=== PATIENT | female | born 1995 | race Hispanic/Latino ===

== ENCOUNTER 2019-10-22 08:40 | Day surgery (SDC) | payer OTHER ==
[2019-10-22] MEDS ORDERED: MIDAZOLAM HCL 2 MG/2 ML INJ ONE (09:00)
[2019-10-22] MEDS ORDERED: propofoL 200 MG/20 ML VIAL IV ONE (09:00)
[2019-10-22] MEDS ORDERED: Ringers Lactate 1,000 ML IV ONE ×2 (09:01→09:24)
[2019-10-22] MEDS ORDERED: CEFAZOLIN/SWI 1gm 0 GM/0 ML SYR ONE (09:01)
[2019-10-22] MEDS ORDERED: LIDOCAINE 2% MPF 5 ML VIAL ONE (09:01)
[2019-10-22] MEDS ORDERED: ROCURONIUM 50 MG/5 ML VIAL IV ONE ×2 (09:01→11:42)
[2019-10-22] MEDS ORDERED: SCOPOLAMINE HYDROBROMIDE PATCH TD ONE (09:01)
[2019-10-22] MEDS ORDERED: FENTANYL CITR 250 MCG/5 ML ONE ×2 (09:01→11:47)
[2019-10-22] MEDS ORDERED: dexAMETHasone 10 MG/ML VIAL ONE (09:01)
[2019-10-22] MEDS ORDERED: ONDANSETRON 4 MG/2 ML VIAL ONE ×2 (09:02→15:12)
[2019-10-22] MEDS ORDERED: CLINDAMYCIN 900MG/D5W 0 MG/0 ML IVPB IV ONE (09:14)
[2019-10-22] MEDS ORDERED: CLINDAMYCIN INJ 300 MG in NA CHLORIDE 0.9% 50 ML IV ONE (09:15)
[2019-10-22] MEDS ORDERED: NS 0.9% VIAL 50 ML ONE (09:23)
[2019-10-22] MEDS ORDERED: GENTAMICIN SULF 80 MG/2ML INJ ONE (09:23)
[2019-10-22] MEDS ORDERED: EPINEPHRINE/PF 1 MG/ML AMP ONE (09:23)
[2019-10-22] MEDS ORDERED: LIDOCAINE 1% W/EPI 1:100,000 MDV 20 ML VIAL ONE (09:23)
[2019-10-22] MEDS ORDERED: NA CHLORIDE 0.9% 2,000 ML ONE (09:24)
[2019-10-22] MEDS ORDERED: BACITRACIN 50000 UNIT VIAL ONE (09:24)
[2019-10-22] MEDS ORDERED: EPHEDRINE SULF 50 MG/ML VIAL ONE (10:14)
[2019-10-22] MEDS ORDERED: KETOROLAC 30 MG/ML INJ ONE (13:36)
[2019-10-22] MEDS ORDERED: Mastisol Adhesive Liq ONE (13:48)
[2019-10-22] MEDS: HYDROMORPHONE HCL 2 MG/ML inj ONE ×2 (14:25→14:37)
[2019-10-22 14:50] VITALS: O2SAT 100
[2019-10-22] MEDS ORDERED: CODEINE 30MG/APAP 300MG TAB ONE (16:06)
[2019-10-22 16:19] VITALS: TEMP 98.2
[2019-10-22 16:58] VITALS: BP 107/53
--- NOTE | 2019-10-23 01:00 | OP ---
Surgeon: Diego Greer MD Mild Disabilities Teacher: Graeme. Preoperative Diagnosis: Breast asymmetry and descent. Postoperative Diagnosis: Breast asymmetry and descent. Procedure: Bilateral breast lift, fat transfer to left breast harvested from the abdomen. Anesthesia: General. Description Of Procedure: After satisfactory induction of general anesthesia, the abdomen and breast s were prepped with Betadine scrub and Betadine paint. Dry sterile drapes applied in the usual tad r. A 45 template was used on the right and left areolas. Then, a transverse and curvilinear incisio ns were made on right breast, and then eccentric ellipse was made over the left areola, approximately 4 cm cephalad, 0.8 cm inferior. The intervening skin was de-epithelialized with a dermabrader after the spiral straps were elevated from the left areola at the 12 o'clock and 9 o'clock positions. The n, electrocautery was used to dissect down through the outer edge of the incision and the flap was th inned to approximately 1 cm proximally, but at its base approximately 2 cm. This was taken down thro ugh the fascia of the pectoralis major muscle everywhere except for along the path of the 4th to 5th intercostal space medially and laterally. After this was done, the patient then had the dermal strap s woven through the pectoralis major muscles and expand it like a Benelli type procedure and then pas sed into the pectoralis major and then out of pectoralis major back to the straps that have been prev iously placed. They were tied to themselves with 2-0 PDS sutures. After this was done on the left s el, then attention was turned to the right side. A transverse incision was made with a cautery. Fl ap was thinned to approximately 1 cm, elevated towards the sternum, clavicle, anterior axillary line. Then, the inferior incision was made and then a retropectoral dissection was performed, and then th e conization was performed using 2-0 PDS suture. Straps were elevated at 12 o'clock, 1:30, and 3 o'c lock positions on the right breast, and the straps were woven in and out the pectoralis muscle, back to base of the cone, back to pectoralis muscle, back to base of the cone, and tied to itself with 2-0 PDS suture for the 12 o'clock and 1:30 strap. The 3 o'clock strap was sewn over to the sternum at 3 o'clock position with 2-0 Ethibond suture. The wounds were temporarily stapled shut. Patient was s at up. Asymmetry was checked and lateral dog was incised. Patient was placed supine, irrigated with antibiotic solution. 10 DEJA brought out of the axilla and the wound was then closed with 3-0 Vicryl subcu and then 3-0 PDS running subcuticular, tied in the vertical meridian of the breast. The nipple was left. We then harvested fat from the anterior abdominal wall after infusing 500 cc of normal sa line with epinephrine. Fat harvest was approximately 50 mL and the fat was injected intramuscularly in the pectoralis major muscle inferiorly, laterally, and cephalad and was harvested with a 2.5 mm ca nnula by hand. Then, a 10 DEJA was brought out of the axilla, sewn in place with 2-0 silk. Pursestrin g of 3-0 Prolene was passed and tied around the 45 mm template, and then wound closed with 4-0 PDS in the deep dermis followed by 4-0 PDS running subcuticular. After this was done, the patient was sat up. Site for opposite nipple-areolar complex was marked out and tissue cored out, nipple complex del ivered, and then sewn with 4-0 PDS followed by 4-0 PDS running subcuticular. Tincture of benzoin, St kandy-Strips applied. The incisions over the abdomen at the umbilicus at the 12 o'clock and 6 o'clock position were closed with 4-0 PDS suture, and abdominal binder applied. Tincture of benzoin, Steri-S trips, 5 x 5s, fluffs, and Omid wrap applied over the breast. Patient tolerated the procedure well an d transferred to recovery room. SAQIB/SADI Voice ID: [id number] Report ID: [id number]
== END 2019-10-22 17:34 | disposition home or self-care (01) ==
LOC: OR 08:40
PROVIDERS: ATTEND Specialist
PROC: 0H0V0ZZ Alteration of Bilateral Breast, Open Approach (ICD-10-PCS; principal; 2019-10-22 09:00)
PROC: 0H0 Skin and Breast, Alteration (ICD-10-PCS; 2019-10-22 09:00)
DX: N64.81 Ptosis of breast (principal); N64.89 Other specified disorders of breast; Z88.0 Allergy status to penicillin
CPT/HCPCS: 19316; 15771; 81025; 88305; J2704; J0171; J1580; J2250; J1170; J3010 ×2; J1100; J7120 ×2; J7030; J2405 ×2; J0690